=== PATIENT | female | born 1985 | race Caucasian/White ===

== ENCOUNTER → 2017-06-23 | Outpatient (REF) | payer MEDICAID, OTHER | LOC: M LAB REF 17:00 | PROVIDERS: ATTEND Advanced Practice Midwife | DX: Z01.419 Encounter for gynecological examination (general) (routine) without abnormal findings (principal); Z11.51 Encounter for screening for human papillomavirus (HPV) ==

== ENCOUNTER → 2017-06-29 | Outpatient (CLI) | payer MEDICAID | LOC: M OUTALCOH 07:57 | PROVIDERS: ATTEND Psychiatry & Neurology Psychiatry | DX: F10.10 Alcohol abuse, uncomplicated (principal) ==

== ENCOUNTER 2017-08-15 10:00 | Outpatient (RCR) | payer MEDICAID | END 2017-08-17 | LOC: M OUTALCOH 10:00 | PROVIDERS: ATTEND Psychiatry & Neurology Psychiatry | DX: F10.10 Alcohol abuse, uncomplicated (principal); Z72.0 Tobacco use ==

== ENCOUNTER 2017-09-04 11:00 | Outpatient (RCR) | payer MEDICAID | END 2017-09-17 | LOC: M OUTALCOH 09-05 10:00 | DX: F10.20 Alcohol dependence, uncomplicated (principal); Z72.0 Tobacco use; F12.10 Cannabis abuse, uncomplicated ==

== ENCOUNTER 2017-09-19 14:00 | Outpatient (RCR) | payer MEDICAID | END 2017-10-18 | LOC: M OUTALCOH 14:00 | DX: F10.20 Alcohol dependence, uncomplicated (principal); Z72.0 Tobacco use; F12.10 Cannabis abuse, uncomplicated ==

== ENCOUNTER 2017-11-10 15:00 | Outpatient (RCR) | payer MEDICAID | END 2017-11-15 | LOC: M OUTALCOH 15:00 | DX: F10.20 Alcohol dependence, uncomplicated (principal); F12.10 Cannabis abuse, uncomplicated; Z72.0 Tobacco use ==

== ENCOUNTER 2017-11-16 15:20 | Outpatient (RCR) | payer MEDICAID | END 2017-12-16 | LOC: M OUTALCOH 15:20 | DX: F10.20 Alcohol dependence, uncomplicated (principal); F12.10 Cannabis abuse, uncomplicated; Z72.0 Tobacco use ==

== ENCOUNTER 2017-12-18 13:25 | Outpatient (RCR) | payer MEDICAID | END 2018-01-15 | LOC: M OUTALCOH 13:25 | DX: F10.20 Alcohol dependence, uncomplicated (principal); Z72.0 Tobacco use; F12.10 Cannabis abuse, uncomplicated ==

== ENCOUNTER 2018-01-16 10:19 | Outpatient (RCR) | payer MEDICAID | END 2018-02-15 | LOC: M OUTALCOH 10:19 | DX: F10.20 Alcohol dependence, uncomplicated (principal); Z72.0 Tobacco use; F12.10 Cannabis abuse, uncomplicated ==

== ENCOUNTER 2018-02-19 14:23 | Outpatient (RCR) | payer MEDICAID | END 2018-03-17 | LOC: M OUTALCOH 14:23 | DX: F10.20 Alcohol dependence, uncomplicated (principal); Z72.0 Tobacco use; F12.10 Cannabis abuse, uncomplicated ==

== ENCOUNTER 2018-03-19 10:50 | Outpatient (RCR) | payer MEDICAID | END 2018-04-17 | LOC: M OUTALCOH 03-26 16:00 | DX: F10.20 Alcohol dependence, uncomplicated (principal); F12.10 Cannabis abuse, uncomplicated; Z72.0 Tobacco use ==

== ENCOUNTER 2018-05-25 08:45 | Outpatient (RCR) | payer MEDICAID | END 2018-06-17 | LOC: M OUTALCOH 08:45 | DX: F10.20 Alcohol dependence, uncomplicated (principal); Z72.0 Tobacco use; F12.10 Cannabis abuse, uncomplicated ==

== ENCOUNTER 2018-06-18 10:46 | Outpatient (RCR) | payer MEDICAID | END 2018-07-18 | LOC: M OUTALCOH 10:46 | DX: F10.20 Alcohol dependence, uncomplicated (principal); F14.10 Cocaine abuse, uncomplicated; Z72.0 Tobacco use; F12.10 Cannabis abuse, uncomplicated ==

== ENCOUNTER 2018-07-26 15:00 | Outpatient (RCR) | payer MEDICAID | END 2018-08-17 | LOC: M OUTALCOH 08-16 14:00 | DX: F10.20 Alcohol dependence, uncomplicated (principal); Z72.0 Tobacco use; F12.10 Cannabis abuse, uncomplicated ==

== ENCOUNTER → 2018-12-06 | Outpatient (CLI) | payer MEDICAID | LOC: M OUTALCOH 08:00 | PROVIDERS: ATTEND Psychiatry & Neurology Psychiatry | DX: F12.20 Cannabis dependence, uncomplicated (principal) ==

== ENCOUNTER 2019-01-14 08:45 | Outpatient (RCR) | payer MEDICAID | END 2019-01-15 | LOC: M OUTALCOH 08:45 | PROVIDERS: ATTEND Psychiatry & Neurology Psychiatry | DX: F12.20 Cannabis dependence, uncomplicated (principal); F10.20 Alcohol dependence, uncomplicated; F14.10 Cocaine abuse, uncomplicated; F17.200 Nicotine dependence, unspecified, uncomplicated ==

== ENCOUNTER 2019-02-14 09:00 | Outpatient (RCR) | payer MEDICAID | END 2019-02-15 | LOC: M OUTALCOH 09:00 | PROVIDERS: ATTEND Psychiatry & Neurology Psychiatry | DX: F12.20 Cannabis dependence, uncomplicated (principal); F10.20 Alcohol dependence, uncomplicated; F14.10 Cocaine abuse, uncomplicated; F17.200 Nicotine dependence, unspecified, uncomplicated ==

== ENCOUNTER 2019-03-14 10:00 | Outpatient (RCR) | payer MEDICAID | END 2019-03-17 | LOC: M OUTALCOH 10:00 | PROVIDERS: ATTEND Psychiatry & Neurology Psychiatry | DX: F12.20 Cannabis dependence, uncomplicated (principal); F10.20 Alcohol dependence, uncomplicated; F14.10 Cocaine abuse, uncomplicated; F17.200 Nicotine dependence, unspecified, uncomplicated ==

== ENCOUNTER 2019-04-16 09:44 | Outpatient (RCR) | payer MEDICAID | END 2019-04-17 | LOC: M OUTALCOH 09:44 | PROVIDERS: ATTEND Psychiatry & Neurology Psychiatry | DX: F10.20 Alcohol dependence, uncomplicated (principal) ==

== ENCOUNTER 2019-04-18 09:00 | Outpatient (RCR) | payer MEDICAID | END 2019-05-18 | LOC: M OUTALCOH 09:00 | PROVIDERS: ATTEND Psychiatry & Neurology Psychiatry | DX: F10.20 Alcohol dependence, uncomplicated (principal) ==

== ENCOUNTER → 2019-06-25 | Outpatient (CLI) | payer MEDICAID | LOC: M OUTALCOH 07:54 | PROVIDERS: ATTEND Psychiatry & Neurology Psychiatry | DX: Z13.39 Encounter for screening examination for other mental health and behavioral disorders (principal); F10.20 Alcohol dependence, uncomplicated ==